=== PATIENT | male | born 1995 | race Caucasian/White ===

== ENCOUNTER 2018-09-14 13:31 | Emergency (ER) | payer OTHER ==
[~2018-09-14] VITALS: Ht 165.1 cm; Wt 61.7 kg
[2018-09-14 13:37] VITALS: BP 136/97
[2018-09-14] MEDS ORDERED: DEXAMETHASONE SOD PHOSPHATE 10 MG/ML VIAL ONE (13:48)
[2018-09-14] MEDS ORDERED: KETOROLAC TROMETHAMINE 15 MG/ML VIAL ONE (13:49)
[2018-09-14] MEDS ORDERED: DEXAMETHASONE SOD PHOSPHATE 10 MG/ML VIAL IM ONE (14:00)
[2018-09-14] MEDS ORDERED: KETOROLAC TROMETHAMINE INJ 30 MG/ML VIAL IM ONE (14:00)
--- NOTE | 2018-09-14 14:00 | NUR ---
for discharge- [facility] given home ambulatory in stable condition
== END 2018-09-14 14:01 | disposition home or self-care (01) ==
LOC: ER 13:32
DX: J02.9 Acute pharyngitis, unspecified (principal); R49.0 Dysphonia; J04.0 Acute laryngitis; H66.92 Otitis media, unspecified, left ear; F17.200 Nicotine dependence, unspecified, uncomplicated
CPT/HCPCS: 96372 ×2; 99283; A4606; J1100; J1885

== ENCOUNTER 2019-09-25 15:27 | Emergency (ER) | payer MEDICAID, OTHER ==
[~2019-09-25] VITALS: Ht 165.1 cm; Wt 81.6 kg
--- NOTE | 2019-09-25 15:30 | NUR ---
PT BIB SELF C/O PALPITATIONS "I DID COCAINE AND ALCOHOL" NOT IN RESPIRATORY DISTRESS, HOOKED TO GUNNERY/ORDNANCE OFFICER, KEPT RESTED AND COMFORTABLE, WILL CONTINUE TO MONITOR.
--- NOTE | 2019-09-25 15:40 | NUR ---
PT SEEN AND EXAMINED BY .
[2019-09-25] MEDS ORDERED: ADENOSINE 6 MG/2 ML VIAL ONE (15:41)
[2019-09-25] MEDS ORDERED: LORAZEPAM INJ 2 MG/ML VIAL ONE ×2 (15:42→17:29)
[2019-09-25] MEDS ORDERED: ASPIRIN 325 MG TABLET ONE (15:42)
--- NOTE | 2019-09-25 15:50 | NUR ---
PT IV LINE ESTABLISHED, BLOOD DRAWN AND SENT TO LAB.
[2019-09-25] MEDS ORDERED: IV NS 0.9% 1,000 ML BAG IV ONE ×2 (16:00→17:30)
[2019-09-25] MEDS ORDERED: ASPIRIN 325 MG TABLET PO ONE (16:00)
[2019-09-25] MEDS ORDERED: LORAZEPAM INJ 2 MG/ML VIAL IV ONE ×2 (16:00→17:30)
[2019-09-25 16:12] LABS: ALANINE AMINOTRANSFERASE 76 U/L (12-78); ALBUMIN 4.4 g/dL (3.4-5.0); ALKALINE PHOSPHATASE 74 U/L (46-116); ASPARTATE AMINOTRANSFERASE 23 U/L (15-37); BILIRUBIN,TOTAL 0.3 mg/dL (0.2-1.0); CARBON DIOXIDE 19 mmol/L (21-32); CHLORIDE 100 mmol/L (98-107); CREATININE 1.1 mg/dL (0.6-1.3); GLUCOSE 169 mg/dL (74-106); SODIUM SERUM 139 mmol/L (136-145); TOTAL PROTEIN, SERUM 8.2 g/dL (6.4-8.2); UREA NITROGEN, BLOOD 5 mg/dL (7-18)
[2019-09-25 16:13] LABS: BASOPHILS # (AUTO) 0.1 /CMM (0.0-0.2); HEMOGLOBIN 15.7 g/dL (13.5-17.5)
[2019-09-25 16:14] LABS: POTASSIUM 2.7 mmol/L (3.5-5.1)
[2019-09-25 16:17] LABS: BASOPHILS % (AUTO) 0.9 % (0.0-2.0); EOSINOPHILS % (AUTO) 0.1 % (0.0-6.0); HEMATOCRIT 47 % (39-51); LYMPHOCYTES # (AUTO) 3.4 /CMM (0.8-4.8); LYMPHOCYTES % (AUTO) 24.9 % (20.0-44.0); MEAN CORPUSCULAR HGB CONC 33 g/dl (31.0-36.0); MEAN CORPUSCULAR VOLUME 94 fL (80-96); MONOCYTES # (AUTO) 0.9 /CMM (0.1-1.30); MONOCYTES % (AUTO) 6.9 % (2.0-12.0); NEUTROPHILS # (AUTO) 9.2 /CMM (1.8-8.9); NEUTROPHILS % (AUTO) 67.2 % (43.0-81.0); PLATELET COUNT (AUTO) 395 /CMM (150-450); RED BLOOD CELL COUNT(AUTO) 4.98 MIL/uL (4.5-6.0); WHITE BLOOD COUNT (AUTO) 13.7 K/uL (4.3-11.0)
[2019-09-25] MEDS ORDERED: POTASSIUM CHLORIDE 20 MEQ TAB.PRT.SR PO ONE ×2 (16:30→16:31)
--- NOTE | 2019-09-25 16:30 | NUR ---
MATERIAL CONTROL SUPERVISOR AT BEDSIDE FOR XRAY.
[2019-09-25] MEDS ORDERED: POTASSIUM CL. PREMIX PERIPHER. 100 ML ONE (16:41)
[2019-09-25] MEDS: POTASSIUM CL. PREMIX PERIPHER. 50 ML IV SCH ×2 (16:47→17:45)
[2019-09-25 16:55] LABS: MAGNESIUM 1.5 mg/dL (1.8-2.4); PHOSPHORUS 2.2 mg/dL (2.5-4.9)
[2019-09-25] MEDS ORDERED: Magnesium 1GM/D5W 100ML PREMIX 200 ML IV ONE (18:26)
[2019-09-25] MEDS: Magnesium 1GM/D5W 100ML PREMIX 100 ML IV SCH ×2 (18:29→19:20)
[2019-09-25] MEDS ORDERED: Magnesium 1GM/D5W 100ML PREMIX PIGGYBACK IV ONE (18:30)
--- NOTE | 2019-09-25 19:18 | NUR ---
Aditi russell in [facility] - 09/25/19 at 1918 by COSMO REPORT RECEIVED FROM NASH MAURICE SHANNAN
--- NOTE | 2019-09-25 19:18 | NUR ---
REPORT GIVEN TO NASH SALEH FOR SHANNAN. WITH ONGOING MAGNESIUM
--- NOTE | 2019-09-25 19:22 | NUR ---
REPORT RECEIVED FROM MIRACLE RN FOR SHANNAN
--- NOTE | 2019-09-25 19:45 | NUR ---
MAGNESIUM ONE GRAM INFUSING.
--- NOTE | 2019-09-25 20:41 | NUR ---
pt's roommate: [email or web address],
--- NOTE | 2019-09-25 20:45 | NUR ---
TWO GRAMS OF MAGNESIUM IV GIVEN PER MD ORDER
--- NOTE | 2019-09-25 20:46 | NUR ---
PER MD VERBAL ORDER INFUSE TWO GRAMS TOTAL MAGNESIUM IV Q1H .
--- NOTE | 2019-09-25 21:21 | NUR ---
Patient discharged to home in stable condition. Written and verbal after care instructions given. Patient verbalizes understanding of instruction.IV removed. Catheter intact and site benign. Pressure and 4x4 applied to site. No bleeding noted.
[2019-09-25 21:23] VITALS: BP 4/117
[2019-09-26] MEDS ORDERED: Magnesium 1GM/D5W 100ML PREMIX 100 ML IV SCH (20:30)
== END 2019-09-25 21:23 | disposition home or self-care (01) ==
LOC: ER 15:27
DX: F14.280 Cocaine dependence with cocaine-induced anxiety disorder (principal); R07.89 Other chest pain; R00.2 Palpitations; R00.0 Tachycardia, unspecified; Z88.0 Allergy status to penicillin
CPT/HCPCS: 36415; 71045; 80048; 80076; 83735; 84100; 84484 ×2; 85025; 93005 ×4; 96365; 96366; 96375; 96376; 99285; J0153; J2060 ×2; J3475; J3480; J7030; J7040

== ENCOUNTER 2021-04-07 13:57 | Emergency (ER) | payer MEDICAID, OTHER ==
[~2021-04-07] VITALS: Ht 170.2 cm; Wt 79.4 kg
--- NOTE | 2021-04-07 14:20 | NUR ---
[id number], from home, c/o panic attack, after taking cocaine and meth BS 96, denies SI/HI. On room air, breathing evenly and unlabored. Sitter at bedside for constant monitoring. Will continue to monitor accordingly.
[2021-04-07] MEDS ORDERED: LORAZEPAM INJ 2 MG/ML VIAL ONE (14:31)
[2021-04-07] MEDS ORDERED: ONDANSETRON 4 MG TAB.RAPDIS ONE (14:31)
[2021-04-07] MEDS: LORAZEPAM INJ 2 MG/ML VIAL IM ONE (14:40)
[2021-04-07] MEDS: ONDANSETRON 4 MG TAB.RAPDIS SL ONE (14:44)
[2021-04-07] MEDS ORDERED: ESCI5TAB PO (18:35)
[2021-04-07 18:38] VITALS: BP 135/66
== END 2021-04-07 18:38 | disposition home or self-care (01) ==
LOC: ER 14:09
DX: F15.90 Other stimulant use, unspecified, uncomplicated (principal); F41.0 Panic disorder [episodic paroxysmal anxiety]; N43.3 Hydrocele, unspecified; Z88.0 Allergy status to penicillin; Z79.899 Other long term (current) drug therapy
CPT/HCPCS: 76870; 80307; 96372; 99284; J2060; Q0162